=== PATIENT | female | born 1995 | race African-American/Black ===

== ENCOUNTER 2025-01-06 19:01 | Emergency (ER) | payer OTHER ==
[~2025-01-06] VITALS: Ht 165.1 cm; Wt 59.0 kg
[2025-01-06 19:29] VITALS: PULSE 55; RESP 16; TEMP 98.8; O2SAT 100
[2025-01-06] MEDS: TRAMADOL HCL 50 MG TAB PO STA (19:54)
== END 2025-01-06 21:38 | disposition home or self-care (01) ==
LOC: ER 19:10
DX: S40.011A Contusion of right shoulder, initial encounter (principal); R07.89 Other chest pain; W22.09XA Striking against other stationary object, initial encounter; Y93.55 Activity, bike riding; Y92.89 Other specified places as the place of occurrence of the external cause
CPT/HCPCS: 93005; 99283